=== PATIENT | male | born 1950 | race Caucasian/White ===

== ENCOUNTER 2016-04-18 12:40 | Emergency (ER) | payer MEDICARE, MEDICAID ==
[2016-04-18 13:40] VITALS: BP 127/69
--- NOTE | 2016-04-18 13:40 | UC ---
Skin Complaint HPI - HPI Summary HPI Summary: was recently hospitalized with aspiration pneumonia. He underwent some kind of endoscopy (?of esophagus or lung) that resulted in a large aspiration when the scope was removed. He had an aspiration pneumonia and was started on Clindamycin. He is on day 3. Developed a widespread rash yesterday and it continues today. Not itchy, doesn't seem to bother him. No wheezing or mouth swelling. Good appetite. He has his usual energy. No fevers today. Cough is minimal. - History of Current Complaint Time Seen by Provider: 04/18/16 13:33 Stated Complaint: RASH Hx Obtained From: Family/Park Interpreter - musical instrument mechanic from [facility] Onset/Duration: Gradual Onset, Lasting Days - 2 Timing: Constant Onset Severity: Mild Current Severity: Mild Location: Diffuse - aggie torso Character: Redness Aggravating: Nothing Alleviating: Nothing Associated Signs & Symptoms: Positive: Cough - occasional, Rash. Negative: Vomiting, Difficulty Breathing, Fever, Wheezing, Hoarseness, Throat Tightening - Allergy/Home Medications Allergies/Adverse Reactions: Allergies Allergy/AdvReac Type Severity Reaction Status Date / Time Alendronate [From Fosamax] Allergy Unknown Verified 04/18/16 13:35 Reaction Details Review of Systems Constitutional: Negative Skin: Rash Eyes: Negative ENT: Negative Respiratory: Negative Cardiovascular: Negative Gastrointestinal: Negative Genitourinary: Negative Motor: Negative Neurovascular: Negative Musculoskeletal: Negative Neurological: Negative Psychological: Negative All Other Systems Reviewed And Are Negative: Yes PMH/Surg Hx/FS Hx/Imm Hx - Additional Past Medical History Additional PMH: mentally challenged, [facility] patient. Some behavioral issues Psychological History Of: Reports: Depression - Surgical History Surgical History: Yes Surgery Procedure, Year, and Place: right eye surgery-10/2015 - Family History Known Family History: Positive: None, Other - positive FMH of contusion Negative: Cardiac Disease, Hypertension, Diabetes - Social History Alcohol Use: None Substance Use Type: Prescribed Smoking Status (MU): Never Smoked Tobacco Physical Exam Triage Information Reviewed: Yes Appearance: Well-Appearing, No Pain Distress - walking around the room, shaking my hand, alert, appears in no distress. Park Interpreter says he is acting like his usual self, Well-Nourished Vital Signs Reviewed: Yes Eye Exam: Normal Respiratory Exam: Normal Respiratory: Positive: Lungs clear, Normal breath sounds, No respiratory distress, No accessory muscle use Cardiovascular Exam: Normal Musculoskeletal Exam: Normal Neurological Exam: Normal Psychological Exam: Normal Skin Exam: Other - lacy red rash all over abdomen, some on back, on upper thighs. Course/Dx - Differential Diagnoses - Skin Complaint Differential Diagnoses: Contact Dermatitis, Drug Rash, Urticaria - Diagnoses Provider Diagnoses: drug rash Discharge - Discharge Plan Condition: Stable Disposition: HOME Prescriptions: Amoxicillin/Clavulanate TAB* [Augmentin TAB 875*] 875 mg PO BID #20 tab Patient Education Materials: Antibiotic Medication Allergy (ED), Pneumonia (ED) Referrals: Jasmeet Alan DO [Primary Care Provider] - Additional Instructions: Aravind appears to be allergic to CLINDAMYCIN. Stop that antibiotic and start Augmentin instead
== END 2016-04-18 14:01 | disposition home or self-care (01) ==
LOC: UCCORT 12:40
DX: L27.0 Generalized skin eruption due to drugs and medicaments taken internally (principal); T36.8X5A Adverse effect of other systemic antibiotics, initial encounter; Y92.9 Unspecified place or not applicable; Z88.8 Allergy status to other drugs, medicaments and biological substances
CPT/HCPCS: 99212; G0463

== ENCOUNTER 2016-05-31 18:02 | Emergency (ER) | payer MEDICARE, MEDICAID ==
[2016-05-31 19:15] VITALS: BP 113/56
--- NOTE | 2016-05-31 19:32 | UC ---
Minor Trauma HPI - HPI Summary HPI Summary: Pt had witnessed fall at [facility] today, fell from standing position onto bottom. Pt is acting and walking normally, staff reports he will respond to pain typically and say "OW." Pt is diagnosed with osteopenia. - History of Current Complaint Chief Complaint: UCGeneralIllness Stated Complaint: S/P FALL ON BUTT Time Seen by Provider: 05/31/16 19:17 Hx Obtained From: Family/Shipping & Receiving Lead Hx From Patient Unobtainable Due To: Dementia Onset/Duration: Sudden Onset Severity Currently: None Mechanism Of Injury: Fall From A Standing Position Aggravating Factor(s): Nothing Alleviating Factor(s): Nothing Associated Signs And Symptoms: Negative: Loss Of Consciousness, Ecchymosis, Swelling - Allergies/Home Medications Allergies/Adverse Reactions: Allergies Allergy/AdvReac Type Severity Reaction Status Date / Time Alendronate [From Fosamax] Allergy Unknown Verified 05/31/16 19:15 Reaction Details PMH/Surg Hx/FS Hx/Imm Hx Previously Healthy: No - severe cognitive impairment Psychological History Of: Reports: Depression - Surgical History Surgical History: Yes Surgery Procedure, Year, and Place: right eye surgery-10/2015 - Family History Known Family History: Positive: None, Other - positive FMH of contusion Negative: Cardiac Disease, Hypertension, Diabetes - Social History Alcohol Use: None Substance Use Type: Prescribed Smoking Status (MU): Never Smoked Tobacco Review of Systems Constitutional: Negative Skin: Negative Eyes: Negative ENT: Negative Respiratory: Negative Cardiovascular: Negative Gastrointestinal: Negative Genitourinary: Negative Motor: Negative Neurovascular: Negative Musculoskeletal: Negative Neurological: Negative Psychological: Negative All Other Systems Reviewed And Are Negative: Yes Physical Exam Triage Information Reviewed: Yes Appearance: No Pain Distress, Well-Nourished Vital Signs: Initial Vital Signs Temp 98.1 F 05/31/16 19:09 Pulse 61 05/31/16 19:09 Resp 18 05/31/16 19:09 BP 113/56 05/31/16 19:09 Pulse Ox 100 05/31/16 19:09 Vital Signs Reviewed: Yes Eye Exam: Other - L eye not visible due to lid droop ENT: Positive: Pharynx normal, Other: - bilat cerumen impaction. Negative: Nasal drainage Neck exam: Normal, Other - no c-spine tenderness Respiratory Exam: Normal Respiratory: Positive: Chest non-tender, Lungs clear, Normal breath sounds, No respiratory distress, No accessory muscle use Cardiovascular Exam: Normal Cardiovascular: Positive: RRR, No Murmur Musculoskeletal: Positive: Strength Intact, ROM Intact Neurological Exam: Other - ambulating normally, spending equal amounts on both LEs Neurological: Positive: Alert, Muscle Tone Normal Psychological Exam: Other - baseline, per senior support analyst Skin Exam: Normal Skin: Positive: Other - no ecchymosis Minor Trauma Course/Dx - Differential Dx/Diagnosis Provider Diagnoses: fall from standing position Discharge - Discharge Plan Condition: Stable Disposition: HOME Patient Education Materials: Fall Prevention (ED) Referrals: Jasmeet Alan DO [Primary Care Provider] - If Needed Additional Instructions: No evidence of acute injury or bony tenderness. If there is new swelling, bruising, or signs of pain, please return for further care.
== END 2016-05-31 19:35 | disposition home or self-care (01) ==
LOC: UCCORT 18:02
DX: Z04.3 Encounter for examination and observation following other accident (principal); F03.90 Unspecified dementia, unspecified severity, without behavioral disturbance, psychotic disturbance, mood disturbance, and anxiety; W01.0XXA Fall on same level from slipping, tripping and stumbling without subsequent striking against object, initial encounter; Y92.9 Unspecified place or not applicable; Z88.8 Allergy status to other drugs, medicaments and biological substances
CPT/HCPCS: 99211; G0463

== ENCOUNTER 2016-06-03 21:12 | Emergency (ER) | payer MEDICARE, MEDICAID ==
[2016-06-03 21:23] VITALS: BP 139/75
--- NOTE | 2016-06-03 21:43 | UC ---
Abdominal Pain Male HPI - HPI Summary HPI Summary: Hiccuping all day today---one dose of Thorazine given this morning---plant protection supervisor nurse was not comfortable authorizing a second dose this evening---pt has ate well today and is acting usual self - History of Current Complaint Chief Complaint: UCGI Stated Complaint: HICCUPS ALL DAY Time Seen by Provider: 06/03/16 21:24 Hx Obtained From: Family/Wind Technician Hx From Patient Unobtainable Due To: Altered Mental Status Onset/Duration: Sudden Onset, Lasting Days - 1, Still Present Timing: Constant Severity Initially: Mild Severity Currently: Mild Character: Unable to describe Aggravating Factor(s):: Nothing Alleviating Factor(s): Nothing Associated Signs And Symptoms: Positive: Negative Similar Episode/Dx As:: has periodically - Allergies/Home Medications Allergies/Adverse Reactions: Allergies Allergy/AdvReac Type Severity Reaction Status Date / Time Alendronate [From Fosamax] Allergy Unknown Verified 06/03/16 21:23 Reaction Details Home Medications: Home Medications Melatonin 10 mg PO BEDTIME 06/03/16 [History Confirmed 06/03/16] PMH/Surg Hx/FS Hx/Imm Hx Previously Healthy: No - MR GI/ History Of: Reports: Gastroesophageal Reflux Psychological History Of: Reports: Depression Other History Of: Hepatitis B - Surgical History Surgical History: Yes Surgery Procedure, Year, and Place: right eye surgery-10/2015 - Family History Known Family History: Positive: None, Other Negative: Cardiac Disease, Hypertension, Diabetes Family History: patient lives in [place] , is [place] --family history not known - Social History Occupation: Disabled Lives: [facility] Alcohol Use: None Substance Use Type: Prescribed Smoking Status (MU): Never Smoked Tobacco Review of Systems Constitutional: Negative Skin: Negative Eyes: Negative ENT: Negative Respiratory: Negative Cardiovascular: Negative Gastrointestinal: Other - Hiccuping all day Genitourinary: Negative Motor: Negative Neurovascular: Negative Musculoskeletal: Negative Neurological: Negative Psychological: Negative All Other Systems Reviewed And Are Negative: Yes Physical Exam Triage Information Reviewed: Yes Completion Of Physical Exam Limited Due To: Altered Mental Status - usual status Appearance: No Pain Distress, Well-Nourished, Ill-Appearing - chronic Vital Signs: Initial Vital Signs Temp 96.5 F 06/03/16 21:15 Pulse 64 06/03/16 21:15 Resp 18 06/03/16 21:15 BP 139/75 06/03/16 21:15 Vital Signs Reviewed: Yes Eyes: Positive: Other: - left blind ENT Exam: Normal ENT: Positive: Normal ENT inspection, Hearing grossly normal, Pharynx normal, TMs normal. Negative: Nasal congestion, Nasal drainage, Tonsillar swelling, Tonsillar exudate Dental: Positive: Gross Decay/Caries @ Neck exam: Normal Neck: Positive: Supple, Nontender Respiratory Exam: Normal Respiratory: Positive: Chest non-tender, Lungs clear, Normal breath sounds, No respiratory distress, No accessory muscle use Cardiovascular Exam: Normal Cardiovascular: Positive: RRR, No Murmur, Pulses Normal, Brisk Capillary Refill Abdominal Exam: Normal Abdomen Description: Positive: Nontender, No Organomegaly, Soft Bowel Sounds: Positive: Present Neurological Exam: Normal Neurological: Positive: Alert, Muscle Tone Normal Psychological Exam: Normal Psychological: Positive: Normal Response To Family Skin Exam: Normal Abd Pain Male Course/Dx - Course Course Of Treatment: use prn Thorazine as RX - Differential Dx/Clinical Impression Differential Diagnosis/HQI/PQRI: Pancreatitis, Other - gerb, intractable Hiccuping Provider Diagnoses: Intractable Hiccups Discharge - Discharge Plan Condition: Stable Disposition: HOME Patient Education Materials: Hiccups (ED) Referrals: Jasmeet Alan DO [Primary Care Provider] - 1 Day
== END 2016-06-03 21:50 | disposition home or self-care (01) ==
LOC: UCCORT 21:12
DX: R06.6 Hiccough (principal)
CPT/HCPCS: 99211; G0463

== ENCOUNTER 2016-07-14 15:39 | Emergency (ER) | payer MEDICARE, MEDICAID ==
[2016-07-14 18:00] VITALS: BP 124/65
--- NOTE | 2016-07-14 18:13 | UC ---
Lower Extremity/Ankle HPI - HPI Summary HPI Summary: 65 YO MALE INJURIED LEFT ANKLE GETTING ON BUS THIS AM HAS ALSO BEEN COMPLAINING OF RIGHT ANKLE PAIN BUT NOT MUCH THE LEFT NORMAL WALKS WITH A LIMP AND HIS GAIT IS UNCHANGED - History of Current Complaint Chief Complaint: UCLowerExtremity Stated Complaint: BILATERAL ANKLE PAIN Time Seen by Provider: 07/14/16 18:09 Hx Obtained From: Patient Onset/Duration: Gradual Onset Severity Initially: Mild Severity Currently: Mild Pain Intensity: 3 Pain Scale Used: Adult Non Verbal Aggravating Factor(s): Standing Alleviating Factor(s): Rest Able to Bear Weight: Yes - Allergies/Home Medications Allergies/Adverse Reactions: Allergies Allergy/AdvReac Type Severity Reaction Status Date / Time Alendronate [From Fosamax] Allergy Unknown Verified 07/14/16 18:00 Reaction Details Home Medications: Home Medications Acetaminophen TAB* [Tylenol TAB*] 2 tab PO ONCE 07/14/16 [History Confirmed 09/24] PMH/Surg Hx/FS Hx/Imm Hx Previously Healthy: Yes GI/ History Of: Reports: Gastroesophageal Reflux Psychological History Of: Reports: Depression Other History Of: Hepatitis B - Surgical History Surgical History: Yes Surgery Procedure, Year, and Place: right eye surgery-10/2015 - Family History Known Family History: Positive: None, Other - UNABLE TO OBATIN DUE TO MR Negative: Cardiac Disease, Hypertension, Diabetes Family History: patient lives in long term , is [place] --family history not known - Social History Alcohol Use: None Substance Use Type: Prescribed Smoking Status (MU): Never Smoked Tobacco - Immunization History Most Recent Influenza Vaccination: [id number] Review of Systems Constitutional: Negative Skin: Negative Eyes: Negative ENT: Negative Respiratory: Negative Cardiovascular: Negative Gastrointestinal: Negative Genitourinary: Negative Motor: Negative Neurovascular: Negative Musculoskeletal: Arthralgia Neurological: Negative Psychological: Negative All Other Systems Reviewed And Are Negative: Yes Physical Exam Triage Information Reviewed: Yes Appearance: Well-Appearing, No Pain Distress, Well-Nourished Vital Signs: Initial Vital Signs Temp 97.9 F 07/14/16 17:53 Pulse 86 07/14/16 17:53 Resp 18 07/14/16 17:53 BP 124/65 07/14/16 17:53 Eye Exam: Other - BLIND LEFT EYE/OPACIFIED Eyes: Positive: Conjunctiva Clear - RIGHT ENT: Positive: Hearing grossly normal. Negative: Nasal congestion, Nasal drainage, Trismus, Muffled/hoarse voice Neck: Positive: Supple, No Lymphadenopathy Respiratory: Positive: Lungs clear, Normal breath sounds, No respiratory distress Cardiovascular: Positive: RRR Musculoskeletal: Positive: ROM Intact, No Edema Neurological: Positive: Alert Skin Exam: Normal Lower Extremity Course/Dx - Differential Dx/Diagnosis Provider Diagnoses: BILATERAL ANKLE PAIN Discharge - Discharge Plan Condition: Stable Disposition: HOME Patient Education Materials: Arthralgia (ED) Referrals: Jasmeet Alan DO [Primary Care Provider] - 4 Days (RECHECK IN 4-5 DAYS IF NOT BETTER)
--- NOTE | 2016-07-14 18:59 | RAD ---
Indication: LEFT ankle pain post fall today. Comparison: None. Technique: AP, mortise, and lateral views LEFT ankle. Report: Negative for fracture or malalignment at the ankle. Large os trigonum measuring up to 1.2 cm AP by 0.7 cm cephalocaudal. Mild osteophytosis at the posterior margin of the talocrural joint. Unremarkable soft tissue contours. 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 IMPRESSION: Negative for fracture or articular malalignment at the ankle.
== END 2016-07-14 18:52 | disposition home or self-care (01) ==
LOC: UCCORT 15:39
DX: M25.572 Pain in left ankle and joints of left foot (principal); M25.571 Pain in right ankle and joints of right foot; K21.9 Gastro-esophageal reflux disease without esophagitis; F32.9 Major depressive disorder, single episode, unspecified; Z86.19 Personal history of other infectious and parasitic diseases; F79 Unspecified intellectual disabilities
CPT/HCPCS: 99212; G0463

== ENCOUNTER 2016-08-05 12:24 | Emergency (ER) | payer MEDICARE, MEDICAID ==
--- NOTE | 2016-08-05 12:51 | UC ---
Hip/Pelvis Pain - HPI Summary HPI Summary: It is unclear if Mr Radford was lowered to the ground or fell this morning at day program landing on his right hip--appears to be in no pain, usual gait per care provider - History Of Current Complaint Chief Complaint: UCLowerExtremity Stated Complaint: PATIENT FELL 08/05 Time Seen by Provider: 08/05/16 12:49 Hx Obtained From: Patient, Family/Buggy Ladle Tender Hx From Patient Unobtainable Due To: Altered Mental Status - profound MR Mechanism Of Injury: fall/lowered to the ground Onset/Duration: Sudden Onset, Lasting Hours Timing: Constant Severity Initially: Mild Severity Currently: None Pain Intensity: 0 - appears to be in no pain Location: Discrete At: - ?right hip Character Of Pain: Unable To Describe Aggravating Factor(s): Nothing Alleviating Factor(s): Nothing Associated Signs And Symptoms: Positive: Negative - Allergies/Home Medications Allergies/Adverse Reactions: Allergies Allergy/AdvReac Type Severity Reaction Status Date / Time Alendronate [From Fosamax] Allergy Unknown Verified 07/14/16 18:00 Reaction Details Clindamycin Allergy Unknown Verified 08/05/16 12:51 Reaction Details Home Medications: Home Medications Acyclovir Topical [Acyclovir] 1 applic TOPICAL TID PRN 08/05/16 [History Confirmed 08/05/16] Alum & Mag Hydrox-Simethicone [Antacid M 200-200-20 mg/5Ml] 325 mg PO Q4HR PRN 08/05/16 [History Confirmed 08/05/16] Bacitracin (Topical) [Bacitracin] 1 applic TOPICAL BID PRN 08/05/16 [History Confirmed 08/05/16] Bismuth Subsalicylate [Kaopectate] 2 teasp PO DAILY PRN 08/05/16 [History Confirmed 08/05/16] Calcitonin ([place]) [Miacalcin] 1 spray NASAL DAILY 08/05/16 [History Confirmed 08/05/16] Fluoxetine HCl 1 tab PO DAILY 08/05/16 [History Confirmed 08/05/16] GuaiFENesin DM* [Robitussin DM*] 10 ml PO Q4HR PRN 08/05/16 [History Confirmed 08/05/16] Hydrocortisone 1% CREAM* [Hytone Cream 1%*] 1 applic TOPICAL TID PRN 08/05/16 [ History Confirmed 08/05/16] Ibuprofen [Advil] 2 tab PO Q4HR PRN 08/05/16 [History Confirmed 08/05/16] Pseudoephedrine HCl 1 tab PO Q4HR PRN 08/05/16 [History Confirmed 08/05/16] Timolol 0.25% OPHTH.SOLN* [Timoptic Ophth.soln 0.25%*] 1 drop OPHTHALMIC DAILY 08/05/16 [History Confirmed 08/05/16] Tobramycin-Dexamethasone [Tobradex 0.3-0.1 %] 1 drop OPHTHALMIC DAILY 08/05/16 [ History Confirmed 08/05/16] PMH/Surg Hx/FS Hx/Imm Hx Previously Healthy: No - profound MR GI/ History Of: Reports: Gastroesophageal Reflux Psychological History Of: Reports: Depression Other History Of: Hepatitis B - Surgical History Surgical History: Yes Surgery Procedure, Year, and Place: right eye surgery-10/2015 - Family History Known Family History: Positive: None, Hypertension Negative: Cardiac Disease, Diabetes Family History: 2 sisters with hypertension - Social History Occupation: Disabled Lives: [facility] Alcohol Use: None Substance Use Type: Prescribed Smoking Status (MU): Never Smoked Tobacco - Immunization History Most Recent Influenza Vaccination: [id number] Review of Systems Constitutional: Negative Skin: Negative Eyes: Negative ENT: Negative Respiratory: Negative Cardiovascular: Negative Gastrointestinal: Negative Genitourinary: Negative Motor: Negative Neurovascular: Negative Musculoskeletal: Negative Neurological: Negative Psychological: Negative All Other Systems Reviewed And Are Negative: Yes Physical Exam Triage Information Reviewed: Yes Appearance: No Pain Distress, Well-Nourished, Ill-Appearing - appears older than stated age, however patients baseline Vital Signs Reviewed: Yes Eye Exam: Normal Eyes: Positive: Conjunctiva Clear ENT Exam: Normal ENT: Positive: Normal ENT inspection, Hearing grossly normal, Pharynx normal, TMs normal. Negative: Nasal congestion, Nasal drainage, Tonsillar swelling, Tonsillar exudate, Trismus, Muffled/hoarse voice Neck exam: Normal Neck: Positive: Supple, Nontender, No Lymphadenopathy Respiratory Exam: Normal Respiratory: Positive: Chest non-tender, Lungs clear, Normal breath sounds, No respiratory distress, No accessory muscle use Cardiovascular Exam: Normal Cardiovascular: Positive: RRR, No Murmur, Pulses Normal, Brisk Capillary Refill Abdominal Exam: Normal Abdomen Description: Positive: Nontender, No Organomegaly, Soft Bowel Sounds: Positive: Present Musculoskeletal Exam: Normal Musculoskeletal: Positive: Strength Intact, ROM Intact, No Edema Neurological Exam: Normal Neurological: Positive: Alert, Muscle Tone Normal Psychological Exam: Normal Psychological: Positive: Normal Response To Family, Decreased Age Appropriate Behavior - patients baseline, Consolable Skin Exam: Normal Diagnostics - Radiology No standard instances Xray Interpretation: No Acute Changes Radiology Interpretation Completed By: Radiologist Hip Injury Course/Dx - Course Course Of Treatment: contusion right hip, ice, tylenol, follow with pcp - Differential Dx/Diagnosis Differential Diagnosis/HQI/PQRI: Contusion, Fracture, Sprain, Strain Provider Diagnoses: Contusion right hip Discharge - Discharge Plan Condition: Stable Disposition: HOME Patient Education Materials: Ice Pack Application (ED), Hip Contusion (ED) Referrals: Jasmeet Alan DO [Primary Care Provider] - If Needed
[2016-08-05 13:07] VITALS: BP 133/68
--- NOTE | 2016-08-05 13:41 | RAD ---
INDICATION: Right hip injury. COMPARISON: There are no prior studies available for comparison. TECHNIQUE: An AP view of the pelvis and frontal and lateral views of the right hip were obtained. FINDINGS: The bones are in normal alignment. No fracture is seen. Joint spaces appear maintained. IMPRESSION: NO EVIDENCE FOR FRACTURE, IF THE PATIENT'S SYMPTOMS PERSIST RECOMMEND FOLLOW-UP IMAGING.
== END 2016-08-05 13:56 | disposition home or self-care (01) ==
LOC: UCCORT 12:24
DX: S70.01XA Contusion of right hip, initial encounter (principal); W19.XXXA Unspecified fall, initial encounter; Y93.9 Activity, unspecified; Y92.199 Unspecified place in other specified residential institution as the place of occurrence of the external cause; F73 Profound intellectual disabilities; K21.9 Gastro-esophageal reflux disease without esophagitis; F32.9 Major depressive disorder, single episode, unspecified; Z86.19 Personal history of other infectious and parasitic diseases; Z88.1 Allergy status to other antibiotic agents
CPT/HCPCS: 99212; G0463

== ENCOUNTER 2016-08-22 15:22 | Emergency (ER) | payer MEDICARE, MEDICAID ==
[2016-08-22 15:47] VITALS: BP 126/69
--- NOTE | 2016-08-22 16:17 | UC ---
General HPI - HPI Summary HPI Summary: patient fell on uneven sidewalk today, his phd internship was holding his arm, but came down slowly on the left hip with his leg bent underneath him. he is walking around room duing exam, cooperative. - History of Current Complaint Chief Complaint: UCGeneralIllness Stated Complaint: PATIENT FELL 08/22 Time Seen by Provider: 08/22/16 15:49 Hx Obtained From: Patient Onset/Duration: Sudden Onset, Lasting Hours Timing: Constant Current Severity: None - Allergy/Home Medications Allergies/Adverse Reactions: Allergies Allergy/AdvReac Type Severity Reaction Status Date / Time Alendronate [From Fosamax] Allergy Unknown Verified 07/14/16 18:00 Reaction Details Clindamycin Allergy Unknown Verified 08/22/16 15:51 Reaction Details PMH/Surg Hx/FS Hx/Imm Hx Previously Healthy: Yes GI/ History Of: Reports: Gastroesophageal Reflux Psychological History Of: Reports: Depression Other History Of: Hepatitis B - Surgical History Surgical History: Yes Surgery Procedure, Year, and Place: right eye surgery-10/2015 - Family History Known Family History: Positive: None, Hypertension, Other - UNABLE TO OBATIN DUE TO MR Negative: Cardiac Disease, Diabetes Family History: 2 sisters with hypertension - Social History Alcohol Use: None Substance Use Type: Prescribed Smoking Status (MU): Never Smoked Tobacco - Immunization History Most Recent Influenza Vaccination: [id number] Review of Systems Constitutional: Negative Skin: Negative Eyes: Negative ENT: Negative Respiratory: Negative Cardiovascular: Negative Gastrointestinal: Negative Genitourinary: Negative Motor: Negative Neurovascular: Negative Musculoskeletal: Negative Neurological: Negative Psychological: Negative All Other Systems Reviewed And Are Negative: Yes Physical Exam Triage Information Reviewed: Yes Appearance: Well-Appearing, No Pain Distress, Well-Nourished Vital Signs: Initial Vital Signs Temp 98.6 F 08/22/16 15:35 Pulse 72 08/22/16 15:35 Resp 16 08/22/16 15:35 BP 126/69 08/22/16 15:35 Pulse Ox 98 08/22/16 15:35 Vital Signs Reviewed: Yes Eye Exam: Normal Eyes: Positive: Conjunctiva Inflamed ENT Exam: Normal ENT: Positive: Hearing grossly normal, Pharynx normal, TMs normal Dental Exam: Normal Neck exam: Normal Neck: Positive: Supple, Nontender, No Lymphadenopathy Respiratory Exam: Normal Respiratory: Positive: Chest non-tender, Lungs clear, Normal breath sounds Cardiovascular Exam: Normal Cardiovascular: Positive: RRR, No Murmur, Pulses Normal Abdominal Exam: Normal Abdomen Description: Positive: Nontender, No Organomegaly, Soft Bowel Sounds: Positive: Present Musculoskeletal Exam: Normal Musculoskeletal: Positive: Other: - moves all extremities, ROM equal bilaterally , no pain expressed with palpation Neurological Exam: Normal Neurological: Positive: Alert, Muscle Tone Normal Psychological: Positive: Other: - intellectual disabilities Skin Exam: Normal Course/Dx - Course Course Of Treatment: hx obtained, exam performed, meds reviewed, no treatment at this time. - Differential Dx - Multi-Symptom Provider Diagnoses: fall, slip, trip Discharge - Discharge Plan Condition: Stable Disposition: HOME Patient Education Materials: Fall Prevention (ED) Additional Instructions: 1. No evidence of trauma at this time. 2. Follow up with any worsening symptoms
== END 2016-08-22 16:28 | disposition home or self-care (01) ==
LOC: UCCORT 15:22
DX: Z04.3 Encounter for examination and observation following other accident (principal)
CPT/HCPCS: 99212; G0463

== ENCOUNTER 2016-08-23 09:15 | Emergency (ER) | payer MEDICARE, MEDICAID ==
[2016-08-23 09:37] VITALS: BP 116/74
--- NOTE | 2016-08-23 09:50 | UC ---
Minor Trauma HPI - HPI Summary HPI Summary: s/p fall this morning no reported injury , pt. is moving all ext. 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 - History of Current Complaint Chief Complaint: UCUpperExtremity Stated Complaint: PATIENT FELL TODAY Time Seen by Provider: 08/23/16 09:41 Hx Obtained From: Family/Photographic Process Attendant Hx From Patient Unobtainable Due To: Other - hx of MR Onset/Duration: Sudden Onset, Lasting Hours - 2, Resolved Onset Of Pain: Immediate Severity Initially: Mild Severity Currently: None Mechanism Of Injury: Fall From A Standing Position Aggravating Factor(s): Nothing Alleviating Factor(s): Nothing Associated Signs And Symptoms: Negative: Loss Of Consciousness, Ecchymosis, Swelling - Allergies/Home Medications Allergies/Adverse Reactions: Allergies Allergy/AdvReac Type Severity Reaction Status Date / Time Alendronate [From Fosamax] Allergy Unknown Verified 08/23/16 09:37 Reaction Details Clindamycin Allergy Unknown Verified 08/23/16 09:37 Reaction Details PMH/Surg Hx/FS Hx/Imm Hx GI/ History Of: Reports: Gastroesophageal Reflux Psychological History Of: Reports: Depression Other History Of: Hepatitis B - Surgical History Surgical History: Yes Surgery Procedure, Year, and Place: right eye surgery-10/2015 - Family History Known Family History: Positive: None, Hypertension, Other - UNABLE TO OBATIN DUE TO MR Negative: Cardiac Disease, Diabetes Family History: 2 sisters with hypertension - Social History Alcohol Use: None Substance Use Type: Prescribed Smoking Status (MU): Never Smoked Tobacco - Immunization History Most Recent Influenza Vaccination: [id number] Review of Systems Constitutional: Negative Skin: Negative Eyes: Negative ENT: Negative Respiratory: Negative Cardiovascular: Negative All Other Systems Reviewed And Are Negative: Yes Physical Exam Triage Information Reviewed: Yes Appearance: Well-Appearing, No Pain Distress, Well-Nourished Vital Signs: Initial Vital Signs Temp 97.6 F 08/23/16 09:33 Pulse 70 08/23/16 09:33 Resp 18 08/23/16 09:33 BP 116/74 08/23/16 09:33 Pulse Ox 100 08/23/16 09:33 Vital Signs Reviewed: Yes Eyes: Positive: Conjunctiva Clear ENT: Positive: Normal ENT inspection, Hearing grossly normal, Pharynx normal Neck exam: Normal Neck: Positive: Supple, Nontender, No Lymphadenopathy Respiratory: Positive: Chest non-tender, Lungs clear, Normal breath sounds, No respiratory distress Cardiovascular: Positive: RRR, No Murmur, Pulses Normal Abdominal Exam: Normal Abdomen Description: Positive: Nontender, Soft. Negative: CVA Tenderness (R), CVA Tenderness (L), Distended, Guarding Bowel Sounds: Positive: Present Musculoskeletal Exam: Normal Musculoskeletal: Positive: Strength Intact, ROM Intact, No Edema Skin Exam: Normal Minor Trauma Course/Dx - Differential Dx/Diagnosis Provider Diagnoses: s/p fall Discharge - Discharge Plan Condition: Stable Disposition: HOME Patient Education Materials: Fall Prevention for Older Adults (ED) Referrals: Jasmeet Alan DO [Primary Care Provider] - If Needed Additional Instructions: normal exam , no signs of injury from the fall
== END 2016-08-23 09:55 | disposition home or self-care (01) ==
LOC: UCCORT 09:15
DX: Z04.8 Encounter for examination and observation for other specified reasons (principal); K21.9 Gastro-esophageal reflux disease without esophagitis; F32.9 Major depressive disorder, single episode, unspecified
CPT/HCPCS: 99212; G0463

== ENCOUNTER 2016-09-18 10:14 | Emergency (ER) | payer MEDICARE, MEDICAID ==
--- NOTE | 2016-09-18 11:10 | UC ---
Skin Complaint HPI - History of Current Complaint Chief Complaint: Kathy Time Seen by Provider: 09/18/16 11:02 Stated Complaint: UPPER EXTREMITY FRICTION ACOSTA Hx Obtained From: Family/Sales And Management Trainee Onset/Duration: Sudden Onset - redness with blisters under both upper arms after inflattable restraints placed to avoid touching his eye with recent eye surgery., Lasting Days - 1, Still Present Timing: Constant Onset Severity: Mild Current Severity: Mild Location: Discrete - bilateral upper arms. Character: Redness - with a few blisters. Aggravating: Other - inflattable arm restraints. Alleviating: Nothing Associated Signs & Symptoms: Positive: Negative Related History: Other: - use of restraints. - Allergy/Home Medications Allergies/Adverse Reactions: Allergies Allergy/AdvReac Type Severity Reaction Status Date / Time Alendronate [From Fosamax] Allergy Unknown Verified 09/18/16 10:30 Reaction Details Clindamycin Allergy Unknown Verified 09/18/16 10:30 Reaction Details Home Medications: Home Medications LORazepam TAB(*) [Ativan 1 MG TAB (*)] 1 mg PO DAILY 09/18/16 [History Confirmed 09/18/16] Neomycin/Polymy/Dex OPHTH.OIN* [Maxitrol 0.1% Opth*] 1 applic RIGHT EYE QID 02/24 [History Confirmed 09/18/16] busPIRone TAB* [Buspar TAB *] 15 mg PO TID 09/18/16 [History Confirmed 09/18/16] Review of Systems Skin: Rash All Other Systems Reviewed And Are Negative: Yes PMH/Surg Hx/FS Hx/Imm Hx Previously Healthy: No - Mental retardation Other History Of: Hepatitis B - Surgical History Surgical History: Yes Surgery Procedure, Year, and Place: right eye surgery-10/2015. right eye surgery - 09/2016 - Family History Known Family History: Positive: None, Hypertension, Other - UNABLE TO OBATIN DUE TO MR Negative: Cardiac Disease, Diabetes Family History: 2 sisters with hypertension - Social History Occupation: Disabled Lives: Prison Alcohol Use: None Substance Use Type: None, Prescribed Smoking Status (MU): Never Smoked Tobacco Have You Smoked in the Last Year: No - Immunization History Most Recent Influenza Vaccination: [id number] Physical Exam Triage Information Reviewed: Yes Appearance: Well-Appearing, No Pain Distress, Well-Nourished Vital Signs: Initial Vital Signs Temp 98.1 F 09/18/16 10:25 Pulse 96 09/18/16 10:25 Resp 18 09/18/16 10:25 Pulse Ox 99 09/18/16 10:25 Eyes: Positive: Conjunctiva Inflamed - OS, Discharge - OS Neck exam: Normal Respiratory Exam: Normal Cardiovascular Exam: Normal Musculoskeletal: Positive: Other: - sitting in a wheelchair. Neurological: Positive: Other: - non-verbal. Psychological Exam: Normal Skin: Positive: Other - ERythematous lines with 2 with blisters on the posteriro aspect of the upper arms bilaterally. Course/Dx - Differential Diagnoses - Skin Complaint Differential Diagnoses: Abscess, Cellulitis, Contact Dermatitis - Diagnoses Provider Diagnoses: Skin abrasion. bullous rash. Discharge - Discharge Plan Condition: Stable Disposition: HOME Patient Education Materials: Abrasion (ED) Additional Instructions: Use the stockinette against the skin, under the restraints, if the restraints need to be used again.
== END 2016-09-18 11:29 | disposition home or self-care (01) ==
LOC: UCCORT 10:14
DX: S40.812A Abrasion of left upper arm, initial encounter (principal); S40.811A Abrasion of right upper arm, initial encounter; R21 Rash and other nonspecific skin eruption; F79 Unspecified intellectual disabilities; X58.XXXA Exposure to other specified factors, initial encounter; Y92.9 Unspecified place or not applicable
CPT/HCPCS: 99212; G0463

== ENCOUNTER 2017-03-24 17:20 | Emergency (ER) | payer MEDICARE, MEDICAID ==
[2017-03-24 18:14] VITALS: BP 119/98
--- NOTE | 2017-03-24 18:42 | UC ---
Head Injury HPI - HPI Summary HPI Summary: 66 YEAR OLD MALE PRESENTS WITH SUPERFICIAL FRONTAL HEAD ABRASION AFTER HITTING HIS HEAD. - History Of Current Complaint Chief Complaint: UCLaceration Stated Complaint: LAC. HEAD/INJ. Time Seen by Provider: 03/24/17 18:42 Hx Obtained From: Family/Advanced Analytics Associate Onset/Duration: Sudden Onset Severity Currently: Moderate Severity Initially: Moderate Pain Scale Used: 0-10 Numeric - 5 Aggravating Factor(s): Nothing Alleviating Factor(s): Nothing Associated Signs And Symptoms: Positive: Negative - Allergies/Home Medications Allergies/Adverse Reactions: Allergies Allergy/AdvReac Type Severity Reaction Status Date / Time Alendronate [From Fosamax] Allergy Unknown Verified 03/24/17 18:18 Reaction Details Clindamycin Allergy Unknown Verified 03/24/17 18:18 Reaction Details PMH/Surg Hx/FS Hx/Imm Hx Previously Healthy: Yes Other History Of: Hepatitis B - Surgical History Surgical History: Yes Surgery Procedure, Year, and Place: right eye surgery-10/2015. right eye surgery - 09/2016 - Family History Known Family History: Positive: None, Hypertension, Other - UNABLE TO OBATIN DUE TO MR Negative: Cardiac Disease, Diabetes Family History: 2 sisters with hypertension - Social History Alcohol Use: None Substance Use Type: None Smoking Status (MU): Never Smoked Tobacco Have You Smoked in the Last Year: No - Immunization History Most Recent Influenza Vaccination: 01/19/16 Most Recent Tetanus Shot: 08/29/11 Review of Systems Constitutional: Negative Skin: Other - FRONTAL HEAD ABRASION Eyes: Negative ENT: Negative Respiratory: Negative Cardiovascular: Negative Gastrointestinal: Negative Genitourinary: Negative Motor: Negative Neurovascular: Negative Musculoskeletal: Negative Neurological: Negative Psychological: Negative All Other Systems Reviewed And Are Negative: Yes Physical Exam Triage Information Reviewed: Yes Vital Signs: Initial Vital Signs Temp 36.8 C 03/24/17 17:49 Resp 18 03/24/17 17:49 BP 119/98 03/24/17 17:49 Vital Signs Reviewed: Yes Eye Exam: Normal ENT Exam: Normal Dental Exam: Normal Neck exam: Normal Neck: Positive: 1 Respiratory Exam: Normal Cardiovascular Exam: Normal Abdominal Exam: Normal Musculoskeletal Exam: Normal Neurological Exam: Normal Psychological Exam: Normal Skin: Positive: Other - FRONTAL HEAD ABRASION Head Injury Course/Dx - Differential Dx/Diagnosis Provider Diagnoses: FRONTAL HEAD ABRASION Discharge - Discharge Plan Condition: Stable Disposition: HOME Prescriptions: Amoxicillin PO (*) [Amoxicillin 400 MG/5 ML SUSP*] 400 mg PO BID #100 ml Patient Education Materials: Laceration (ED) Referrals: Jasmeet Alan DO [Primary Care Provider] - Additional Instructions: F/U IN 2 DAYS FOR WOUND RECHECK
== END 2017-03-24 19:08 | disposition home or self-care (01) ==
LOC: UCCORT 17:20
DX: S00.81XA Abrasion of other part of head, initial encounter (principal); W22.8XXA Striking against or struck by other objects, initial encounter; Y93.9 Activity, unspecified; Y92.9 Unspecified place or not applicable; Y99.9 Unspecified external cause status
CPT/HCPCS: 99212; G0463

== ENCOUNTER 2017-05-05 15:13 | Emergency (ER) | payer MEDICARE, MEDICAID ==
[2017-05-05 16:21] VITALS: BP 129/107
--- NOTE | 2017-05-05 16:58 | UC ---
Head Injury HPI - HPI Summary HPI Summary: PT BROUGHT BY STAFF FOR ABRASION TO FOREHEAD NOTICED ABOUT 3PM TODAY. PT IS LEGALLY BLIND AND OFTEN WALKS AROUND THE HOUSE UNASSISTED. HAS FREQUENT RUN-INS WITH BRICE. THIS INCIDENT WAS UNWITNESSED. NO LOC THAT STAFF ARE AWARE OF. PT IS NON VERBAL AT BASELINE AND STAFF MEMBER INDICATES THAT PT'S BEHAVIOR IS AT BASELINE. WOUND HAS BEEN CLEANSED. PT DOES NOT TOLERATE ANY WOUND DRESSINGS. - History Of Current Complaint Chief Complaint: UCSkin Stated Complaint: FOREHEAD INJURY Time Seen by Provider: 05/05/17 16:36 Hx Obtained From: Family/Feeder Loader - STAFF MEMBER/CAREGIVER Onset/Duration: Sudden Onset, Lasting Hours, Still Present Severity Currently: Mild Severity Initially: Mild Pain Intensity: 0 Pain Scale Used: 0-10 Numeric Aggravating Factor(s): Nothing Alleviating Factor(s): Nothing Associated Signs And Symptoms: Negative: Epistaxis, Vomiting - Allergies/Home Medications Allergies/Adverse Reactions: Allergies Allergy/AdvReac Type Severity Reaction Status Date / Time Alendronate [From Fosamax] Allergy Unknown Verified 05/05/17 16:21 Reaction Details Clindamycin Allergy Unknown Verified 05/05/17 16:21 Reaction Details PMH/Surg Hx/FS Hx/Imm Hx - Additional Past Medical History Additional PMH: MR, NON VERBAL GI/ History: Gastroesophageal Reflux Psychological History: Anxiety Other History Of: Hepatitis B - Surgical History Surgical History: Yes Surgery Procedure, Year, and Place: right eye surgery-10/2015. right eye surgery - 09/2016 - Family History Known Family History: Positive: Hypertension, Other - UNABLE TO OBATIN DUE TO MR Negative: Cardiac Disease, Diabetes Family History: 2 sisters with hypertension - Social History Alcohol Use: None Substance Use Type: None Smoking Status (MU): Never Smoked Tobacco Have You Smoked in the Last Year: No - Immunization History Most Recent Influenza Vaccination: 01/19/16 Most Recent Tetanus Shot: 08/29/11 Review of Systems Constitutional: Negative Skin: Other - ABRASION Respiratory: Negative Cardiovascular: Negative Gastrointestinal: Negative All Other Systems Reviewed And Are Negative: Yes Physical Exam Triage Information Reviewed: Yes Appearance: No Pain Distress Vital Signs: Initial Vital Signs Temp 97.4 F 05/05/17 16:12 Pulse 70 05/05/17 16:12 Resp 18 01/26/18 16:12 BP 129/107 05/05/17 16:12 Pulse Ox 97 05/05/17 16:12 Vital Signs Reviewed: Yes Neck: Positive: Supple Respiratory: Positive: No respiratory distress, No accessory muscle use Cardiovascular: Positive: Pulses Normal Abdomen Description: Positive: Soft Musculoskeletal: Positive: No Edema Neurological: Positive: Other: - BASELINE NON VERBAL Psychological: Positive: Other: - NO DISTRESS Skin: Positive: Other - 1CM SUPERFICIAL ABRASION CENTER OF FOREHEAD Head Injury Course/Dx - Course Course Of Treatment: SUPERFICIAL ABRASION ON FOREHEAD. BEHAVIOR AT BASELINE PER STAFF. NO INDICATION FOR CT SCAN AT PRESENT. STAFF MEMBER REPORTS CT NOT POSSIBLE WITHOUT SEDATION ANYWAY. DISCUSSED WOUND CARE FOR ABRASION AND INDICATIONS FOR PRESENTATION TO ED. - Differential Dx/Diagnosis Provider Diagnoses: 1. ABRASION FOREHEAD. 2. HEAD INJURY Discharge - Discharge Plan Condition: Stable Disposition: HOME Patient Education Materials: Head Injury (ED), Abrasion (ED) Referrals: Jasmeet Alan DO [Primary Care Provider] - If Needed Additional Instructions: AMAYA APPEARS TO BE AT HIS BASELINE LEVEL OF FUNCTION. NO INDICATION FOR CT SCAN AT PRESENT. KEEP ABRASION CLEAN AND COVER WITH ANTIBIOTIC OINTMENT. SEEK FOLLOW-UP IF HE DEVELOPS SPREADING REDNESS OF THE SKIN, PURULENT DRAINAGE, FEVER, INCREASED PAIN OR ANY OTHER CONCERNING SYMPTOMS. GO TO THE ER WITHOUT FAIL IF HE DEVELOPS GAIT INSTABILITY,VOMITING, WEAKNESS, BEHAVIORAL CHANGES OR APPEARS TO BE IN PAIN OR HAS ANY OTHER CONCERNING SYMPTOMS.
== END 2017-05-05 16:55 | disposition home or self-care (01) ==
LOC: UCCORT 15:13
DX: S00.81XA Abrasion of other part of head, initial encounter (principal); S09.90XA Unspecified injury of head, initial encounter; K21.9 Gastro-esophageal reflux disease without esophagitis; F41.9 Anxiety disorder, unspecified; H54.8 Legal blindness, as defined in USA; W22.8XXA Striking against or struck by other objects, initial encounter; Y92.9 Unspecified place or not applicable
CPT/HCPCS: 99212; G0463

== ENCOUNTER 2017-08-20 16:43 | Emergency (ER) | payer MEDICARE, MEDICAID ==
[2017-08-20 17:19] VITALS: BP 129/100
--- NOTE | 2017-08-20 17:42 | UC ---
Eye Complaint HPI - HPI Summary HPI Summary: med care manager notes pt is having increasing R eye swelling and erythema for 3 days. pt has MR and is not able to give hx. pharmacy retail support specialist notes it is worsening. - History of Current Complaint Chief Complaint: UCEye Stated Complaint: RT EYE COMPLAINT Time Seen by Provider: 08/20/17 17:35 Hx Obtained From: Family/Nickel Plant Operator Onset/Duration: Gradual Onset Timing: Constant Pain Intensity: 0 Aggravating Factor(s): Nothing Alleviating Factor(s): Nothing Associated Signs And Symptoms: Positive: Drainage (Clear) - Allergies/Home Medications Allergies/Adverse Reactions: Allergies Allergy/AdvReac Type Severity Reaction Status Date / Time alendronate sodium Allergy Unknown Verified 08/20/17 17:22 Reaction Details clindamycin Allergy Unknown Verified 08/20/17 17:22 Reaction Details PMH/Surg Hx/FS Hx/Imm Hx - Additional Past Medical History Additional PMH: MR, Hep B, Blind OS, Skin CA, BPH, Anxiety, Hydrocephalic with normal pressure Other History Of: Hepatitis B - Surgical History Surgical History: Yes Surgery Procedure, Year, and Place: right eye surgery-10/2015. right eye surgery - 09/2016 - Family History Known Family History: Positive: None, Hypertension, Other - UNABLE TO OBATIN DUE TO MR Negative: Cardiac Disease, Diabetes Family History: 2 sisters with hypertension - Social History Lives: [facility] Alcohol Use: None Substance Use Type: None Smoking Status (MU): Never Smoked Tobacco Have You Smoked in the Last Year: No - Immunization History Most Recent Influenza Vaccination: 01/19/16 Most Recent Tetanus Shot: 08/29/11 Vaccination Up to Date: Yes Review of Systems Constitutional: Negative Skin: Rash - R eye red/swelling Respiratory: Negative Gastrointestinal: Negative Genitourinary: Negative Motor: Negative Neurovascular: Negative Musculoskeletal: Negative Psychological: Anxious Is Patient Immunocompromised?: No All Other Systems Reviewed And Are Negative: No - Comments Additional Review of Systems Comments: REST OF ROS IS NOT OBTAINABLE DUE TO PT'S . CHARGE ENTRY GAVE ROS TO THE BEST OF HER ABILITY. Physical Exam Triage Information Reviewed: Yes Appearance: Well-Appearing Vital Signs: Initial Vital Signs Temp 97.8 F 08/20/17 17:12 Pulse 78 08/20/17 17:12 Resp 16 08/20/17 17:12 BP 129/100 08/20/17 17:12 Pulse Ox 95 08/20/17 17:12 Vital Signs Reviewed: Yes Eyes: Positive: Other: - R PERIORBITAL EDEMA AND ERYTHEMA, NO ADDITIONAL EXAM. PT UNCOOPERATIVE AND STRIKING OUT AT THIS PROVIDER PLUS REFUSING TO OPEN THE R EYE ENT: Positive: Pharynx normal, TMs normal. Negative: Nasal congestion Neck: Positive: Supple, Nontender, No Lymphadenopathy Respiratory: Positive: Lungs clear, Normal breath sounds Cardiovascular: Positive: RRR, No Murmur Abdomen Description: Positive: Nontender, No Organomegaly, Soft Bowel Sounds: Positive: Present Neurological: Positive: Alert - PER BASELINE PER CHARGE ENTRY Skin Exam: Normal Eye Complaint Course/Dx - Course Course Of Treatment: 18:[address] Kyle at the [facility] ER, advised of worsening R periorbital edema and erythema plus not able to examine the globe due to pt hx of MR/striking out at this provider thus needs higher level of care. - Differential Dx/Diagnosis Provider Diagnoses: R PERIORBITAL EDEMA, R PERIORBITAL ERYTHEMA Discharge - Sign-Out/Discharge Documenting (check all that apply): Discharge/Admit/Transfer - Discharge Plan Condition: Stable Disposition: TRANS HIGHER LVL OF CARE FAC Referrals: Anastsaiia Sidhu PA [Primary Care Provider] - Additional Instructions: GO DIRECTLY TO THE [facility] ER UPON DISCHARGE FROM THIS URGENT CARE - Billing Disposition and Condition Condition: STABLE Disposition: EMTALA
== END 2017-08-20 18:25 | disposition short-term general hospital (02) ==
LOC: UCCORT 16:43
DX: H05.221 Edema of right orbit (principal); L53.9 Erythematous condition, unspecified; Z88.1 Allergy status to other antibiotic agents; Z88.8 Allergy status to other drugs, medicaments and biological substances
CPT/HCPCS: 99212; G0463

== ENCOUNTER 2017-09-30 13:27 | Emergency (ER) | payer MEDICARE, MEDICAID ==
[2017-09-30 14:23] VITALS: BP 120/60
--- NOTE | 2017-09-30 14:59 | UC ---
Abdominal Pain Male HPI - HPI Summary HPI Summary: PT IS A RESIDENT OF A CUSTODIAL. PRESENTS WITH ABDOMINAL PAIN AND INCREASED SALIVA PRODUCTION - PT BRINGING UP FOAMY WHITE SALIVA THROUGHOUT ENCOUNTER. STAFF MEMBER STATES HE SOUNDED VERY "GURGLY" LAST NIGHT. APPETITE IS DOWN. WAS SEEN IN ED YESTERDAY FOR DIARRHEA AND LOW TEMP. ALSO REPORTED TO HAVE HAD A BOWEL OBSTRUCTION LAST WEEK AND WAS JUST D/C'D 5 DAYS AGO. - History of Current Complaint Chief Complaint: UCGeneralIllness Stated Complaint: RIGHT EYE/NOSE DRAINAGE Time Seen by Provider: 09/30/17 14:40 Hx Obtained From: Patient Onset/Duration: Gradual Onset, Lasting Days, Still Present Timing: Constant Severity Initially: Moderate Severity Currently: Moderate Pain Scale Used: Adult Non Verbal Location: Diffuse Character: Unable to describe Associated Signs And Symptoms: Positive: Other - Allergies/Home Medications Allergies/Adverse Reactions: Allergies Allergy/AdvReac Type Severity Reaction Status Date / Time alendronate sodium Allergy Unknown Verified 09/30/17 14:23 Reaction Details clindamycin Allergy Unknown Verified 09/30/17 14:23 Reaction Details Home Medications: Home Medications Al Hydrox/Mg Hydrox/Hannah BULK* [Mylanta - BULK BOT*] 15 ml PO Q4H PRN 09/30/17 [ History Confirmed 09/30/17] Brimonidine P 0.1%(NF) [Alphagan P 0.1% (NF)] 1 drop RIGHT EYE BID 09/30/17 [ History Confirmed 09/30/17] Calcitonin NASAL(NF) [Fortical(NR)] 1 spray ALT NARE DAILY 09/30/17 [History Confirmed 09/30/17] Calcium Carbonate/Vitamin D3 [Oyster Shell+D 250 mg Tablet] 1 tab PO TID [History Confirmed 09/30/17] Ibuprofen TAB* [Advil TAB*] 400 mg PO Q4H PRN 09/30/17 [History Confirmed ] Melatonin (NF) 9 mg PO DAILY 09/30/17 [History Confirmed 09/30/17] Multivitamins/Minerals TAB* [Theragran/minerals TAB*] 1 tab PO DAILY 09/30/17 [ History Confirmed 09/30/17] Omeprazole CAP* [Prilosec CAP* 20 MG] 20 mg PO BID 09/30/17 [History Confirmed 09/30/17] Pseudoephedrine TAB* [Sudafed TAB*] 30 mg PO Q4H PRN 09/30/17 [History Confirmed 09/30/17] Sodium Chloride 5% OPTH OINT* [Ezra 128- 5% Opth Oint*] 0.5 inch RIGHT EYE BID 09/30/17 [History Confirmed 09/30/17] Tamsulosin CAP* [Flomax CAP*] 0.4 mg PO DAILY 09/30/17 [History Confirmed ] Tolnaftate 1 applic TOPICAL DAILY 09/30/17 [History Confirmed 09/30/17] Vitamin THERAPEUTIC TAB* [Theragran TAB*] 1 tab PO DAILY 09/30/17 [History Confirmed 09/30/17] busPIRone TAB* [Buspar TAB*] 30 mg PO BID 09/30/17 [History Confirmed 09/30/17] PMH/Surg Hx/FS Hx/Imm Hx - Additional Past Medical History Additional PMH: MR, BPH, OAB GI/ History: Gastroesophageal Reflux Psychological History: Anxiety Other History Of: Hepatitis B - Surgical History Surgical History: Yes Surgery Procedure, Year, and Place: right eye surgery-10/2015. right eye surgery - 09/2016 - Family History Known Family History: Positive: Hypertension, Other - UNABLE TO OBATIN DUE TO MR Negative: Cardiac Disease, Diabetes Family History: 2 sisters with hypertension - Social History Alcohol Use: None Substance Use Type: None Smoking Status (MU): Never Smoked Tobacco Have You Smoked in the Last Year: No - Immunization History Most Recent Influenza Vaccination: 01/19/16 Most Recent Tetanus Shot: 08/29/11 Vaccination Up to Date: Yes Review of Systems Constitutional: Negative Skin: Negative ENT: Other - INCREASED SALIVA Respiratory: Cough Cardiovascular: Negative Gastrointestinal: Abdominal Pain, Diarrhea Neurological: Other - NON VERBAL All Other Systems Reviewed And Are Negative: Yes Physical Exam Triage Information Reviewed: Yes Appearance: No Pain Distress Vital Signs: Initial Vital Signs Temp 98 F 09/30/17 14:19 Pulse 76 09/30/17 14:19 Resp 18 09/30/17 14:19 BP 120/60 09/30/17 14:19 Pulse Ox 97 09/30/17 14:19 Vital Signs Reviewed: Yes Eyes: Positive: Other: - LEFT EYE ENUCLEATED. SLIGHT DRAINAGE RIGHT EYE ENT: Positive: Other - BRINGING UP COPIOUS FOAMY WHITE SALIVA Neck: Positive: Supple Respiratory: Positive: Lungs clear, No respiratory distress, No accessory muscle use Cardiovascular: Positive: RRR, Pulses Normal Abdomen Description: Positive: Soft, Other: - DIFFUSELY TENDER. NO REBOUND. Negative: Distended, Guarding Musculoskeletal: Positive: No Edema Neurological: Positive: Alert Skin: Negative: rashes Abd Pain Male Course/Dx - Course Course Of Treatment: DISCUSSED PT WITH DR. CHARAN MUNGUIA AT 3:10PM. ACCEPTS TRANSFER TO [facility] ED. - Differential Dx/Clinical Impression Provider Diagnoses: ABDOMINAL PAIN, NOS Discharge - Sign-Out/Discharge Documenting (check all that apply): Discharge/Admit/Transfer - Discharge Plan Condition: Stable Disposition: TRANS HIGHER LVL OF CARE FAC Patient Education Materials: Abdominal Pain (ED) Referrals: Chrystal Barron MD [Primary Care Provider] - - Billing Disposition and Condition Condition: STABLE Disposition: Trans Higher Lvl of Care Fac
== END 2017-09-30 15:17 | disposition short-term general hospital (02) ==
LOC: UCCORT 13:27
DX: R10.84 Generalized abdominal pain (principal); Z88.1 Allergy status to other antibiotic agents; Z88.8 Allergy status to other drugs, medicaments and biological substances; K21.9 Gastro-esophageal reflux disease without esophagitis; F79 Unspecified intellectual disabilities; N40.0 Benign prostatic hyperplasia without lower urinary tract symptoms; N32.81 Overactive bladder
CPT/HCPCS: 99213; G0463

== ENCOUNTER 2018-02-03 09:48 | Emergency (ER) | payer MEDICARE, MEDICAID ==
[2018-02-03 10:19] VITALS: BP 132/84
--- NOTE | 2018-02-03 10:35 | UC ---
Complaint Male HPI - HPI Summary HPI Summary: Pt is accompanied by two caregivers from care home. Caregivers report that another care trainer observed a"growth" at/on pt's rectum/anus. Pt has "not been himself" per staff members stating that pt has been "grumpy and combative" . Staff is concerned that pt has an hemorrhoid. Staff denies BRBPR - History of Current Complaint Chief Complaint: UCGeneralIllness Stated Complaint: PERSONAL Time Seen by Provider: 02/03/18 10:20 Hx Obtained From: Family/Refinisher Hx From Patient Unobtainable Due To: Other - cognitive impairment Onset/Duration: Sudden Onset, Lasting Hours Severity Initially: Mild Severity Currently: Mild Pain Intensity: 0 Location: Other - anus - Risk Factors Testicular Torsion: Negative - Allergies/Home Medications Allergies/Adverse Reactions: Allergies Allergy/AdvReac Type Severity Reaction Status Date / Time alendronate sodium Allergy Unknown Verified 02/03/18 10:20 Reaction Details clindamycin Allergy Unknown Verified 02/03/18 10:20 Reaction Details PMH/Surg Hx/FS Hx/Imm Hx Previously Healthy: Yes - is relatively sendentary and has significant cognitive impairment Other History Of: Hepatitis B - Surgical History Surgical History: Yes Surgery Procedure, Year, and Place: right eye surgery-10/2015. right eye surgery - 09/2016 - Family History Known Family History: Positive: None, Hypertension, Other - UNABLE TO OBATIN DUE TO MR Negative: Cardiac Disease, Diabetes Family History: 2 sisters with hypertension - Social History Occupation: Disabled Lives: Longterm Alcohol Use: None Substance Use Type: None Smoking Status (MU): Never Smoked Tobacco Have You Smoked in the Last Year: No - Immunization History Most Recent Influenza Vaccination: 01/19/16 Most Recent Tetanus Shot: 08/29/11 Vaccination Up to Date: Yes Review of Systems Constitutional: Negative Skin: Negative Eyes: Negative ENT: Negative Respiratory: Negative Cardiovascular: Negative Gastrointestinal: Other - rectal growth/mass Genitourinary: Negative Motor: Negative Neurovascular: Negative Musculoskeletal: Negative Neurological: Negative Psychological: Negative Is Patient Immunocompromised?: No All Other Systems Reviewed And Are Negative: Yes Physical Exam Triage Information Reviewed: Yes Vital Signs: Initial Vital Signs Temp 98.0 F 02/03/18 10:14 Pulse 88 02/03/18 10:14 Resp 22 02/03/18 10:14 BP 132/84 02/03/18 10:14 Pulse Ox 97 02/03/18 10:14 Vital Signs Reviewed: Yes Eye Exam: Normal ENT Exam: Normal Neck exam: Normal Respiratory Exam: Normal Cardiovascular Exam: Normal Abdominal Exam: Normal Abdomen Description: Positive: Nontender Male Genital Exam: Positive: Other - redundant skin flold at anus, non tender, not thrombosed, non tender, no active bleeding Musculoskeletal Exam: Normal Neurological Exam: Normal Psychological Exam: Normal Skin Exam: Normal Complaint Male Course/Dx - Course Course Of Treatment: Care givers were instructed to continue to monitor area for any changes. caregivesers verbalized understanding and agreed to plan of care. - Differential Dx/Diagnosis Differential Diagnosis/HQI/PQRI: Other - hemorrhoid Provider Diagnoses: rectal skin fold- redundant skin Discharge - Sign-Out/Discharge Documenting (check all that apply): Patient Departure All imaging exams completed and their final reports reviewed: No Studies - Discharge Plan Condition: Stable Disposition: HOME Patient Education Materials: Soft Tissue Mass (ED) Referrals: Chrystal Barron MD [Primary Care Provider] - If Needed Additional Instructions: Please note that the skin fold observed today will need to have continued follow up and monitoring. - Billing Disposition and Condition Condition: STABLE Disposition: Home - Attestation Statements Provider Attestation: I was available for consult. This patient was seen by the KATLYN. The patient was not presented to, seen by, or examined by me. -Arron
== END 2018-02-03 11:01 | disposition home or self-care (01) ==
LOC: UCCORT 09:48
DX: K64.4 Residual hemorrhoidal skin tags (principal); B19.10 Unspecified viral hepatitis B without hepatic coma; F79 Unspecified intellectual disabilities; Z88.1 Allergy status to other antibiotic agents; Z88.8 Allergy status to other drugs, medicaments and biological substances
CPT/HCPCS: 99211; G0463

== ENCOUNTER 2018-03-28 10:11 | Emergency (ER) | payer MEDICARE, MEDICAID ==
--- NOTE | 2018-03-28 11:08 | UC ---
Lower Extremity/Ankle HPI - HPI Summary HPI Summary: Pt is accompanied by care home caregiver. caregiver reports that pt was stepping off transportation bus and "inverted right ankle". Pt did not fall, has been able to ambulate at baseline wiht no indication of pain. - History of Current Complaint Chief Complaint: UCLowerExtremity Stated Complaint: ANKLE INJURY Time Seen by Provider: 03/28/18 11:02 Hx Obtained From: Family/Creative Services Manager Onset/Duration: Sudden Onset Severity Initially: Mild Severity Currently: None Pain Intensity: 4 Able to Bear Weight: Yes - Risk Factors Gout Risk Factors: Male DVT Risk Factors: Negative Septic Arthritis Risk Factor: Negative - Allergies/Home Medications Allergies/Adverse Reactions: Allergies Allergy/AdvReac Type Severity Reaction Status Date / Time alendronate sodium Allergy Unknown Verified 02/22/18 16:14 Reaction Details clindamycin Allergy Unknown Verified 02/22/18 16:14 Reaction Details Home Medications: Home Medications Melatonin/Pyridoxine HCl (B6) [Melatonin 3 mg Tablet] 1 each PO BEDTIME [History Confirmed 03/28/18] Netarsudil Mesylate [Rhopressa] 1 drop BOTH EYES BEDTIME 03/28/18 [History Confirmed 03/28/18] Sodium Chloride 5% OPTH OINT* [Ezra 128- 5% Opth Oint*] 1 applic BOTH EYES BID 03/28/18 [History Confirmed 03/28/18] PMH/Surg Hx/FS Hx/Imm Hx Previously Healthy: Yes - has physical and cognitive disabilities Other History Of: Hepatitis B - Surgical History Surgical History: Yes Surgery Procedure, Year, and Place: right eye surgery-10/2015. right eye surgery - 09/2016 - Family History Known Family History: Positive: None, Hypertension, Other - UNABLE TO OBATIN DUE TO MR Negative: Cardiac Disease, Diabetes Family History: 2 sisters with hypertension - Social History Occupation: Disabled Lives: [facility] Alcohol Use: None Substance Use Type: None Smoking Status (MU): Never Smoked Tobacco Have You Smoked in the Last Year: No - Immunization History Most Recent Influenza Vaccination: 01/19/16 Most Recent Tetanus Shot: 08/29/11 Vaccination Up to Date: Yes Review of Systems All Other Systems Reviewed And Are Negative: Yes Constitutional: Positive: Negative Skin: Positive: Negative Eyes: Positive: Negative ENT: Positive: Negative Respiratory: Positive: Negative Cardiovascular: Positive: Negative Gastrointestinal: Positive: Negative Genitourinary: Positive: Negative Motor: Positive: Other - at baseline Neurovascular: Positive: Negative Musculoskeletal: Positive: Edema - mild edema right lateral malleolus Neurological: Positive: Negative Psychological: Positive: Negative Is Patient Immunocompromised?: No Physical Exam Triage Information Reviewed: Yes Appearance: Well-Appearing Vital Signs: Initial Vital Signs Temp 98.6 F 03/28/18 10:53 Pulse 66 03/28/18 10:53 Resp 18 03/28/18 10:53 Pulse Ox 97 03/28/18 10:53 Vital Signs Reviewed: Yes Eye Exam: Normal ENT Exam: Normal Dental Exam: Normal Dental: Positive: Gross Decay/Caries @ Respiratory: Positive: No respiratory distress Musculoskeletal: Positive: Edema @ - right lateral malleolus Neurological Exam: Normal Psychological Exam: Normal Skin Exam: Normal Lower Extremity Course/Dx - Differential Dx/Diagnosis Differential Diagnosis/HQI/PQRI: Contusion, Fracture (Closed), Sprain Provider Diagnosis: Mild sprain of right ankle Discharge - Sign-Out/Discharge Documenting (check all that apply): Patient Departure All imaging exams completed and their final reports reviewed: No Studies - Discharge Plan Condition: Stable Disposition: HOME Patient Education Materials: Ankle Sprain (ED), R.I.C.E. Treatment (ED) Referrals: Andry Serrano MD [Medical Doctor] - If Needed Chrystal Barron MD [Primary Care Provider] - If Needed Additional Instructions: Please follow up with PCP and/or Orthopedic provider if symptoms do not improve or worsen. - Billing Disposition and Condition Condition: STABLE Disposition: Home
== END 2018-03-28 11:18 | disposition home or self-care (01) ==
LOC: UCCORT 10:11
DX: S93.401A Sprain of unspecified ligament of right ankle, initial encounter (principal); V78.4XXA Person boarding or alighting from bus injured in noncollision transport accident, initial encounter; Y93.89 Activity, other specified; Y92.9 Unspecified place or not applicable; Z88.1 Allergy status to other antibiotic agents; Z88.8 Allergy status to other drugs, medicaments and biological substances
CPT/HCPCS: 99212; G0463

== ENCOUNTER 2018-06-15 16:12 | Emergency (ER) | payer MEDICARE, MEDICAID ==
--- NOTE | 2018-06-15 17:52 | UC ---
Respiratory Complaint HPI - HPI Summary HPI Summary: 67-year-old male with severe mental retardation who lives in a longterm comes in with a 1 day history of difficulty breathing and difficulty handling his secretions. Patient has not been eating since yesterday. He is continually spitting up his secretions. He appears in mild respiratory distress. He has much decreased activity compared to normal. Patient is nonverbal so cannot tell us any further information. - History of Current Complaint Chief Complaint: UCGeneralIllness Stated Complaint: CONGESTION Time Seen by Provider: 06/15/18 17:35 Pain Intensity: 0 - Allergies/Home Medications Allergies/Adverse Reactions: Allergies Allergy/AdvReac Type Severity Reaction Status Date / Time alendronate sodium Allergy Unknown Verified 06/15/18 17:23 Reaction Details clindamycin Allergy Unknown Verified 06/15/18 17:23 Reaction Details PMH/Surg Hx/FS Hx/Imm Hx Previously Healthy: Yes - mr Other History Of: Hepatitis B - Surgical History Surgical History: Yes Surgery Procedure, Year, and Place: right eye surgery-10/2015. right eye surgery - 09/2016 - Family History Known Family History: Positive: None, Hypertension, Other - UNABLE TO OBATIN DUE TO MR Negative: Cardiac Disease, Diabetes Family History: 2 sisters with hypertension - Social History Alcohol Use: None Substance Use Type: None Smoking Status (MU): Never Smoked Tobacco Have You Smoked in the Last Year: No - Immunization History Most Recent Influenza Vaccination: 01/19/16 Most Recent Tetanus Shot: 08/29/11 Vaccination Up to Date: Yes Review of Systems All Other Systems Reviewed And Are Negative: Yes Constitutional: Positive: Other - see hpi Skin: Positive: Negative Eyes: Positive: Negative ENT: Positive: Other - see hpi Respiratory: Positive: Other - see hpi Cardiovascular: Positive: Other - see hpi Gastrointestinal: Negative: Vomiting Motor: Positive: Negative Neurovascular: Positive: Negative Musculoskeletal: Positive: Negative Neurological: Positive: Negative Psychological: Positive: Negative Is Patient Immunocompromised?: No Physical Exam Triage Information Reviewed: Yes Completion Of Physical Exam Limited Due To: Patient is uncooperative with exam - Severe mrYohana Does not cooperate for exam. The patient is continually spitting up his secretions. Appearance: No Pain Distress, Well-Nourished, Ill-Appearing Vital Signs: Initial Vital Signs Temp 98.4 F 06/15/18 17:17 Pulse 70 06/15/18 17:17 Resp 20 06/15/18 17:17 Pulse Ox 93 06/15/18 17:17 Vital Signs Reviewed: Yes Eye Exam: Normal Eyes: Positive: Conjunctiva Clear ENT: Positive: Other - Spitting up secretions Neck: Positive: Supple Respiratory: Positive: Respiratory distress, Rhonchi Cardiovascular: Positive: RRR Musculoskeletal: Positive: ROM Intact Neurological: Positive: Alert Psychological Exam: Normal Skin Exam: Normal Respiratory Course/Dx - Course Course Of Treatment: Because the patient has severe MR it is difficult to completely evaluate him. He has copious secretions which makes me think of an esophageal foreign body. Is also having some respiratory distress which may indicate aspiration pneumonia. Patient was [facility] by ambulance [facility]. - Differential Dx/Diagnosis Provider Diagnosis: Respiratory distress, Difficulty clearing secretions Discharge - Sign-Out/Discharge Documenting (check all that apply): Patient Departure All imaging exams completed and their final reports reviewed: No Studies - Discharge Plan Condition: Stable Disposition: TRANS HIGHER LVL OF CARE FAC Referrals: Chrystal Barron MD [Primary Care Provider] - - Billing Disposition and Condition Condition: STABLE Disposition: Trans Higher Lvl of Care Fac
== END 2018-06-15 18:02 | disposition short-term general hospital (02) ==
LOC: UCCORT 16:12
DX: R06.03 Acute respiratory distress (principal); K22.8 Other specified diseases of esophagus; F79 Unspecified intellectual disabilities; Z88.8 Allergy status to other drugs, medicaments and biological substances; Z88.1 Allergy status to other antibiotic agents
CPT/HCPCS: 99213; G0463